=== PATIENT | female | born 1955 | race Hispanic/Latino ===

== ENCOUNTER → 2017-06-16 | Outpatient (CLI) | payer OTHER, MEDICARE ==
[~2017-06-16] MED LIST: ASPI-1012 PO; ASPI-1026 PO; ATOR20TA65 PO; DULO20CA17 PO; HYDR-2132 PO; HYDR-3965 PO; LOSA50TA37 PO; METF10004 PO; SERT25TA5 PO
== END | disposition home or self-care (01) ==
LOC: RAH 09:34
PROVIDERS: ATTEND Orthopaedic Surgery
DX: S83.241A Other tear of medial meniscus, current injury, right knee, initial encounter (principal); S83.281A Other tear of lateral meniscus, current injury, right knee, initial encounter; M25.461 Effusion, right knee; X58.XXXA Exposure to other specified factors, initial encounter; Y93.89 Activity, other specified; Y92.89 Other specified places as the place of occurrence of the external cause; Y99.8 Other external cause status
CPT/HCPCS: 73721

== ENCOUNTER → 2017-07-11 | Outpatient (CLI) | payer OTHER, MEDICARE | END | disposition home or self-care (01) | LOC: RAH 16:09 | PROVIDERS: ATTEND Internal Medicine | DX: R07.81 Pleurodynia (principal) | CPT/HCPCS: 71100 ==

== ENCOUNTER → 2018-06-19 | Outpatient (CLI) | payer OTHER, MEDICARE ==
[~2018-06-19] MED LIST changes: -LOSA50TA37 PO; +LOSA50TA64 PO; +METF-446 PO; -METF10004 PO
== END | disposition home or self-care (01) ==
LOC: RAH 09:23
PROVIDERS: ATTEND Internal Medicine
DX: R10.11 Right upper quadrant pain (principal); R10.12 Left upper quadrant pain
CPT/HCPCS: 76700

== ENCOUNTER → 2018-12-02 | Outpatient (CLI) | payer OTHER, MEDICARE ==
[~2018-12-02] MED LIST changes: -DULO20CA17 PO; +DULO20CA18 PO
== END | disposition home or self-care (01) ==
LOC: RAH 15:57
PROVIDERS: ATTEND Internal Medicine
DX: M25.512 Pain in left shoulder (principal)
CPT/HCPCS: 73030

== ENCOUNTER → 2019-04-13 | Outpatient (CLI) | payer MEDICARE, OTHER | END | disposition home or self-care (01) | LOC: RAH 14:34 | PROVIDERS: ATTEND Orthopaedic Surgery | DX: M75.102 Unspecified rotator cuff tear or rupture of left shoulder, not specified as traumatic (principal); M71.312 Other bursal cyst, left shoulder; M65.812 Other synovitis and tenosynovitis, left shoulder | CPT/HCPCS: 73221 ==

== ENCOUNTER → 2019-06-08 | Outpatient (CLI) | payer OTHER | END | disposition home or self-care (01) | LOC: RAH 12:11 | PROVIDERS: ATTEND Internal Medicine | DX: Z01.818 Encounter for other preprocedural examination (principal) | CPT/HCPCS: 71046 ==

== ENCOUNTER → 2020-01-19 | Outpatient (CLI) | payer OTHER, MEDICARE ==
[~2020-01-19] MED LIST changes: -ASPI-1012 PO; -ASPI-1026 PO; +CEPH-578 PO; -HYDR-2132 PO; -HYDR-3965 PO; +HYDR-4457 PO; -METF-446 PO; +NAPR-1192 PO; +insulin
== END | disposition home or self-care (01) ==
LOC: RAH 14:14
PROVIDERS: ATTEND Orthopaedic Surgery
DX: M23.91 Unspecified internal derangement of right knee (principal)
CPT/HCPCS: 73721

== ENCOUNTER 2020-02-09 10:55 | Emergency (ER) | payer OTHER, MEDICARE ==
[~2020-02-09] VITALS: Ht 152.4 cm; Wt 59.0 kg
[2020-02-09] MEDS ORDERED: KETOROLAC TROMETHAMINE 10 MG TABLET PO SCH (12:00)
== END 2020-02-09 13:23 | disposition home or self-care (01) ==
LOC: EDH 10:55
DX: S13.9XXA Sprain of joints and ligaments of unspecified parts of neck, initial encounter (principal); M54.12 Radiculopathy, cervical region; M62.830 Muscle spasm of back; W06.XXXA Fall from bed, initial encounter; Y93.89 Activity, other specified; Y92.89 Other specified places as the place of occurrence of the external cause; Y99.8 Other external cause status
CPT/HCPCS: 70450; 72125; 72128; 93005

== ENCOUNTER → 2020-06-23 | Outpatient (CLI) | payer OTHER, MEDICARE | END | disposition home or self-care (01) | LOC: RAH 10:08 | PROVIDERS: ATTEND Internal Medicine | DX: K59.00 Constipation, unspecified (principal); R14.0 Abdominal distension (gaseous) | CPT/HCPCS: 74018 ==

== ENCOUNTER → 2020-10-16 | Outpatient (CLI) | payer OTHER, MEDICARE ==
[~2020-10-16] MED LIST changes: +SERT-438 PO; -SERT25TA5 PO
== END | disposition home or self-care (01) ==
LOC: RAH 10:42
PROVIDERS: ATTEND Internal Medicine
DX: M54.5 Low back pain (principal); M25.551 Pain in right hip
CPT/HCPCS: 72100; 73502

== ENCOUNTER → 2021-07-30 | Outpatient (CLI) | payer OTHER, MEDICARE | END | disposition home or self-care (01) | LOC: RAH 10:16 | PROVIDERS: ATTEND Internal Medicine | DX: M47.26 Other spondylosis with radiculopathy, lumbar region (principal); M51.27 Other intervertebral disc displacement, lumbosacral region; M48.07 Spinal stenosis, lumbosacral region | CPT/HCPCS: 72148 ==

== ENCOUNTER → 2021-10-16 | Outpatient (CLI) | payer OTHER, MEDICARE ==
[~2021-10-16] MED LIST changes: +REGADENOSON 0.4 MG/5 ML PF SYG IVP SCH
== END | disposition home or self-care (01) ==
LOC: SHCH 08:36
PROVIDERS: ATTEND Internal Medicine Cardiovascular Disease
DX: R07.9 Chest pain, unspecified (principal); R00.2 Palpitations
CPT/HCPCS: 78452; 93017; 96374; A9500 ×2; J2785

== ENCOUNTER → 2021-11-01 | Outpatient (CLI) | payer OTHER, MEDICARE ==
[~2021-11-01] MED LIST changes: -REGADENOSON 0.4 MG/5 ML PF SYG IVP SCH
== END | disposition home or self-care (01) ==
LOC: RAH 09:26
PROVIDERS: ATTEND Internal Medicine
DX: R59.0 Localized enlarged lymph nodes (principal); R22.1 Localized swelling, mass and lump, neck; J02.9 Acute pharyngitis, unspecified
CPT/HCPCS: 76536

== ENCOUNTER → 2021-11-28 | Outpatient (CLI) | payer OTHER, MEDICARE | END | disposition home or self-care (01) | LOC: RAH 07:14 | PROVIDERS: ATTEND Internal Medicine Medical Oncology | DX: R59.1 Generalized enlarged lymph nodes (principal); E78.5 Hyperlipidemia, unspecified; E11.9 Type 2 diabetes mellitus without complications; Z80.42 Family history of malignant neoplasm of prostate; Z82.49 Family history of ischemic heart disease and other diseases of the circulatory system; Z83.3 Family history of diabetes mellitus; Z79.4 Long term (current) use of insulin; Z79.899 Other long term (current) drug therapy | CPT/HCPCS: 38505; 87070 ×2; 87076 ×2; 88305; 76942; C1887; A4215 ==

== ENCOUNTER → 2022-05-07 | Outpatient (CLI) | payer OTHER, MEDICARE | END | disposition home or self-care (01) | LOC: RAH 12:15 | PROVIDERS: ATTEND Internal Medicine | DX: R10.2 Pelvic and perineal pain (principal); Z90.710 Acquired absence of both cervix and uterus | CPT/HCPCS: 76856 ==

== ENCOUNTER → 2023-05-13 | Outpatient (CLI) | payer OTHER, MEDICARE | END | disposition home or self-care (01) | LOC: RAH 08:37 | PROVIDERS: ATTEND Internal Medicine | DX: K57.30 Diverticulosis of large intestine without perforation or abscess without bleeding (principal); K43.9 Ventral hernia without obstruction or gangrene; R19.00 Intra-abdominal and pelvic swelling, mass and lump, unspecified site | CPT/HCPCS: 74176 ==

== ENCOUNTER → 2023-11-13 | Outpatient (CLI) | payer OTHER, MEDICARE | END | disposition home or self-care (01) | LOC: RAH 14:37 | DX: M16.11 Unilateral primary osteoarthritis, right hip (principal); M19.071 Primary osteoarthritis, right ankle and foot; M25.551 Pain in right hip; M25.571 Pain in right ankle and joints of right foot; M25.572 Pain in left ankle and joints of left foot | CPT/HCPCS: 73502; 73610 ==

== ENCOUNTER 2024-01-15 08:00 | Emergency (ER) | payer OTHER, MEDICARE ==
[~2024-01-15] VITALS: Ht 152.4 cm; Wt 72.6 kg
[2024-01-15 09:36] LABS: BASOPHILS # (AUTO) 0.02 K/uL (0.00-0.20); BASOPHILS % (AUTO) 0.2 % (0.0-5.0); EOSINOPHILS # (AUTO) 0.07 K/uL (0.00-0.70); EOSINOPHILS % (AUTO) 0.8 % (0.0-8.0); HEMATOCRIT 39.8 % (36-48); IMMATURE GRANULOCYTE ABSOLUTE 0.03 K/uL (0-1); LYMPHOCYTES # (AUTO) 2.7 K/uL (1.0-4.8); LYMPHOCYTES % (AUTO) 30.4 % (21.0-51.0); MEAN CORPUSCULAR HEMOGLOBIN 30.5 pg (27.0-33.0); MEAN CORPUSCULAR HGB CONC 32.9 g/dL (32.0-36.0); MEAN CORPUSCULAR VOLUME 92.6 fL (79-99); MONOCYTES # (AUTO) 0.8 K/uL (0.1-1.0); MONOCYTES % (AUTO) 9.3 % (3.0-13.0); NEUTROPHILS # (AUTO) 5.2 K/uL (1.8-7.7); PLATELET COUNT (AUTO) 326 K/uL (130-400); RED CELL DISTRIBUTION WIDTH 13.6 % (11.0-15.5); WHITE BLOOD COUNT (AUTO) 8.8 K/uL (4.8-10.8)
[2024-01-15 09:46] LABS: CREATININE 1.1 mg/dL (0.5-1.0); POTASSIUM 3.5 mmol/L (3.5-5.1)
[2024-01-15] MEDS: KETOROLAC 15MG/ML VIAL (15MG/ML) IM ONE (10:05)
[2024-01-15 11:15] VITALS: BP 130/68; PULSE 67; RESP 15; O2SAT 99
== END 2024-01-15 11:39 | disposition home or self-care (01) ==
LOC: EDH 08:00
DX: S82.831A Other fracture of upper and lower end of right fibula, initial encounter for closed fracture (principal); M25.571 Pain in right ankle and joints of right foot; M25.572 Pain in left ankle and joints of left foot; M25.552 Pain in left hip; E66.9 Obesity, unspecified; E11.9 Type 2 diabetes mellitus without complications; M81.0 Age-related osteoporosis without current pathological fracture; F25.9 Schizoaffective disorder, unspecified; Z79.899 Other long term (current) drug therapy; Z79.2 Long term (current) use of antibiotics; Z68.30 Body mass index [BMI] 30.0-30.9, adult; Z98.890 Other specified postprocedural states; Z90.710 Acquired absence of both cervix and uterus; W10.8XXA Fall (on) (from) other stairs and steps, initial encounter; Y93.89 Activity, other specified; Y92.89 Other specified places as the place of occurrence of the external cause; Y99.8 Other external cause status
CPT/HCPCS: 99284; 29515; 80048; 85025; 36415; 73610; 73502; 96372; J1885

== ENCOUNTER 2024-05-22 17:44 | Emergency (ER) | payer OTHER, MEDICARE ==
[~2024-05-22] VITALS: Ht 152.4 cm; Wt 63.5 kg
--- NOTE | 2024-05-22 18:30 | ERN ---
ED Note History of Present Illness Stated Complaint: RECTAL BLEED Chief Complaint: Rectal Bleed Time Seen by MD: 18:30 Dictation: Says she has had some abdominal discomfort. But this comes and goes without any medications. pt comes in for rectal bleeding Allergies: Coded Allergies: No Known Drug Allergies (Unverified Allergy, Unknown, 12/06/16) Home Meds Active Scripts Naproxen (Naproxen) 375 Mg Tablet, 375 MG PO BID, #60 TAB Prov:JOSE MIGUEL ROACH MD 06/21/19 Hydrocodone/Acetaminophen ([place] 5-325 Tablet) 1 Each Tablet, 1-2 EACH PO Q6HPRN PRN for pain, #60 TAB Prov:JOSE MIGUEL ROACH MD 06/21/19 Cephalexin (Keflex) 500 Mg Capsule, 500 MG PO Q8H, #7 CAP Prov:JOSE MIGUEL ROACH MD 06/21/19 Reported Medications [insulin] No Conflict Check 06/18/19 Losartan Potassium (Losartan Potassium) 50 Mg Tablet, 50 MG PO AM, TAB 12/09/16 Duloxetine HCl (Duloxetine HCl) 20 Mg Capsule.dr, 20 MG PO BID, CAP 12/06/16 Atorvastatin Calcium (Atorvastatin Calcium) 20 Mg Tablet, 20 MG PO DAILY, TAB 12/06/16 Sertraline HCl (Sertraline HCl) 25 Mg Tablet, 25 MG PO DAILY, TAB 12/06/16 Past Medical History Past Medical History: Depression, Diabetes-Type II, Other Additional Past Medical Hx: OSTEOPOROSIS Surgical History: Hysterectomy, Other Surgical History Other: L SHOULDER, LEFT KNEE, UMBILICAL HERNIA REPAIR History: Not Applicable Review of System Dictation Constitutional: Negative for fever,chills, and weight loss Eyes: Negative for injury, pain,redness, and discharge ENT: Negative for injury,pain or swelling Cardiovascular: Negative for chest pain, palpitations, and edema Respiratory: Negative for shortness of breath, cough, and wheezing, Abdomen/GI: Rectal bleeding Back: Negative for injury and pain : Negative for injury, bleeding and discharge MS/Extremity: Negative for injury and deformity Skin: Negative for rash, and discoloration Neuro: Negative for headache, weakness, numbness, tingling, and seizure Psych: Negative for suicide ideation, homicidal ideation, and hallucinations Initial Vital Sign VS Vital Signs Date Time Temp Pulse Resp B/P (MAP) Pulse Ox O2 Delivery O2 Flow Rate FiO2 12/21/24 17:48 98.2 99 18 143/87 98 Physical Exam Dictation General: awake, alert, NAD Head/Face: Normocephalic, atraumatic Eyes: PERRL, EOMI, vision at baseline ENT: oral cavity clear, TMs clear, no signs of infection Neck: Trachea midline, supple, no nuchal rigidity Cardiovascular: RRR, normal S1/S2, No MRGs, no JVD Respiratory: CTAB, no respiratory distress, No rales or wheezes Abdomen: Soft, non-tender, non-distended, normal bowel sounds, no guarding or rebound. Patient is not have any abdominal wincing grimacing Skin: Warm, dry, normal turgor, no rash MS/Extremity: Pulses equal, no cyanosis, neurovascular intact, FROM Neuro: COAx4, GCS 15, strength 5/5, CN 2-12 intact, normal cerebellar exam, normal gait, Psych: Normal behavior, mood, and affect normal Results (Laboratory/Radiology) Laboratory/Radiology Laboratory Tests Test 05/22/24 20:05 05/22/24 20:46 Urine Color COLORLESS (YELLOW) Urine Appearance CLEAR (CLEAR) Urine pH 5.5 (5.0-8.0) Urine Specific [place] 1.022 (1.001-1.031) Urine Protein NEGATIVE mg/dL (NEGATIVE) Urine Glucose (UA) >=1000 mg/dL (NEGATIVE) H Urine Ketones 40 mg/dL (NEGATIVE) H Urine Occult Blood NEGATIVE (NEGATIVE) Urine Nitrate NEGATIVE (NEGATIVE) Urine Bilirubin NEGATIVE mg/dL (NEGATIVE) Urine Urobilinogen 0.2 mg/dL (0.2-1.0) Urine Leukocyte Esterase NEGATIVE [place]/uL Urine RBC 0-1 /HPF (0-1) Urine WBC 0-1 /HPF (0-1) Urine Squamous Epithelial Cells RARE /HPF (0-2) Urine Bacteria None /HPF (None Seen) White Blood Count 8.1 K/uL (4.8-10.8) Red Blood Count 3.89 MIL/uL (4.00-5.50) L Hemoglobin 12.0 g/dL (12.0-16.0) Hematocrit 35.9 % (36-48) L Mean Corpuscular Volume 92.3 fL (79-99) Mean Corpuscular Hemoglobin 30.8 pg (27.0-33.0) Mean Corpuscular Hemoglobin Concent 33.4 g/dL (32.0-36.0) Red Cell Distribution Width 12.6 % (11.0-15.5) Platelet Count 291 K/uL (130-400) Mean Platelet Volume 10.0 fL (7.5-10.5) Immature Granulocyte % (Auto) 0.5 % (0-1) Neutrophils (%) (Auto) 55.0 % (40.0-77.0) Lymphocytes (%) (Auto) 34.8 % (21.0-51.0) Monocytes (%) (Auto) 7.9 % (3.0-13.0) Eosinophils (%) (Auto) 1.4 % (0.0-8.0) Basophils (%) (Auto) 0.4 % (0.0-5.0) Neutrophils # (Auto) 4.5 K/uL (1.8-7.7) Lymphocytes # (Auto) 2.8 K/uL (1.0-4.8) Monocytes # (Auto) 0.6 K/uL (0.1-1.0) Eosinophils # (Auto) 0.11 K/uL (0.00-0.70) Basophils # (Auto) 0.03 K/uL (0.00-0.20) Absolute Immature Granulocyte (auto 0.04 K/uL (0-1) Nucleated Red Blood Cells 0.0 % (0.0-0.19) Sodium Level 133 mmol/L (136-145) L Potassium Level 3.9 mmol/L (3.5-5.1) Chloride Level 97 mmol/L (101-111) L Carbon Dioxide Level 28 mmol/L (21-32) Blood Urea Nitrogen 20 mg/dL (7-18) H Creatinine 1.0 mg/dL (0.5-1.0) Glomerular Filtration Rate Calc 61 mL/min (>90) Random Glucose 363 mg/dL (70-105) H Total Calcium 8.6 mg/dL (8.5-10.1) Total Bilirubin 0.4 mg/dL (0.2-1.0) Aspartate Amino Transf (AST/SGOT) 20 U/L (10-37) Alanine Aminotransferase (ALT/SGPT) 30 U/L (12-78) Alkaline Phosphatase 119 U/L (50-136) Troponin I High Sensitivity 10 ng/L (4-50) Total Protein 7.1 g/dL (6.0-8.3) Albumin 3.1 g/dL (3.5-5.0) L ED Course ED Course Orders Procedure Category Date Status Time Cbc With Differential LAB 05/22/24 Complete 18:51 Comprehensive LAB 05/22/24 Complete Metabolic Panel 18:51 Troponin I High LAB 05/22/24 Complete Sensitivity 18:51 Urinalysis Profile LAB 05/22/24 Complete 18:51 12 Lead Ekg Tracing- EKG 05/22/24 Complete Technical 18:51 Ct Abdomen/Pelvis W/O CT 05/22/24 Resulted Contrast 18:51 Chest 1vw RAD 05/22/24 Resulted 18:51 Vital Signs Date Time Temp Pulse Resp B/P (MAP) Pulse Ox O2 Delivery O2 Flow Rate FiO2 05/22/24 17:48 98.2 99 18 143/87 98 Medical Decision Making MDM I told him labs test imaging were all within normal limits. She had deferred a rectal examination. I said best case scenario would be it would be external internal rectal hemorrhoid. She said she had had this in the past and went away without issues. I said to be on the safe side we come into the hospital. And have GI do endoscopy and colonoscopy. And had to monitor hemoglobins. They said that if she feels that labs and tests imaging are negative. She preferred to go home and follow up with PCP in the outpatient setting. I said this is okay that is understandable. I told her if she does start to have any anymore abdominal pain or bleeding to return immediately to the no other questions complaints concerns at this time. All respect to the OR told me she has a may capacity. DX & DISP Disposition: Discharge Departure Impression: Primary Impression: Rectal bleeding Condition: Stable Scripts Famotidine (Famotidine) 20 Mg Tablet 1 TAB PO BID for 30 Days, #60 TAB 0 Refills Prov: SILVANA FULLER MD 05/22/24 Pantoprazole Sodium (Protonix) 20 Mg Tablet. 1 TAB PO DAILY for 30 Days, #30 TAB 0 Refills Prov: SILVANA FULLER MD 05/22/24 Referrals: BETTE MARTINEZ MD (PCP) SILVANA FULLER MD May 22, 2024 18:30
--- NOTE | 2024-05-22 19:34 | HMCIMG ---
CHEST 1VW REASON: cp COMPARISON: 06/08/2019 FINDINGS: Single view of the chest was obtained. Lungs are clear. Heart size is normal. There is no pulmonary vascular congestion. Mediastinum and bony thorax appear unremarkable. IMPRESSION: 1. Normal single view chest x-ray.
--- NOTE | 2024-05-22 19:55 | EKG ---
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
--- NOTE | 2024-05-22 19:55 | HMCIMG ---
CT ABDOMEN/PELVIS W/O CONTRAST REASON: ABD PAIN COMPARISON: 05/13/2023 FINDINGS: Lung bases are clear. There are no focal liver lesions. There are normal-appearing kidneys.. Spleen and pancreas appear unremarkable. The gallbladder appears normal as well. There is moderate to sigmoid diverticulosis without evidence of diverticulitis. Bowel loops appear otherwise unremarkable. There is no CT evidence of acute appendicitis. There is no evidence of free fluid or intraperitoneal air. There are no focal fluid collections. Aorta and retroperitoneum appear normal as do pelvic soft tissue structures. The anterior abdominal wall is intact. Osseous structures appear unremarkable. IMPRESSION: 1. Moderate sigmoid diverticulosis without evidence of diverticulitis. 2. Otherwise unremarkable noncontrast CT abdomen and pelvis. CT was performed with one or more following dose reduction techniques: automated exposure control, adjustment of the mA and kv according to patient's size, or use of a iterative reconstruction technique.
[2024-05-22 20:17] LABS: ADD UA MICROSCOPIC YES; APPEARANCE,URINE CLEAR (CLEAR); BILIRUBIN,URINE NEGATIVE (NEGATIVE); COLOR,URINE COLORLESS (YELLOW); GLUCOSE, URINE (UA) >=1000 mg/dL (NEGATIVE); KETONES,URINE 40 mg/dL (NEGATIVE); LEUKOCYTE ESTERASE ,URINE NEGATIVE Leu/uL (NEGATIVE); NITRATE,URINE NEGATIVE (NEGATIVE); OCCULT BLOOD,URINE NEGATIVE (NEGATIVE); PH,URINE 5.5 (5.0-8.0); PROTEIN,URINE NEGATIVE (NEGATIVE); UROBILINOGEN,URINE 0.2 mg/dL (0.2-1.0)
[2024-05-22 20:18] LABS: RBC,URINE 0-1 /HPF (0-1); SQUAMOUS EPITHELIAL CELL,UR RARE /HPF (0-2); WBC,URINE 0-1 /HPF (0-1)
[2024-05-22 20:56] LABS: BASOPHILS # (AUTO) 0.03 K/uL (0.00-0.20); BASOPHILS % (AUTO) 0.4 % (0.0-5.0); EOSINOPHILS # (AUTO) 0.11 K/uL (0.00-0.70); EOSINOPHILS % (AUTO) 1.4 % (0.0-8.0); HEMATOCRIT 35.9 % (36-48); IMMATURE GRANULOCYTE ABSOLUTE 0.04 K/uL (0-1); LYMPHOCYTES # (AUTO) 2.8 K/uL (1.0-4.8); LYMPHOCYTES % (AUTO) 34.8 % (21.0-51.0); MEAN CORPUSCULAR HEMOGLOBIN 30.8 pg (27.0-33.0); MEAN CORPUSCULAR HGB CONC 33.4 g/dL (32.0-36.0); MEAN CORPUSCULAR VOLUME 92.3 fL (79-99); MONOCYTES # (AUTO) 0.6 K/uL (0.1-1.0); MONOCYTES % (AUTO) 7.9 % (3.0-13.0); NEUTROPHILS # (AUTO) 4.5 K/uL (1.8-7.7); PLATELET COUNT (AUTO) 291 K/uL (130-400); RED BLOOD CELL COUNT(AUTO) 3.89 MIL/uL (4.00-5.50); RED CELL DISTRIBUTION WIDTH 12.6 % (11.0-15.5); WHITE BLOOD COUNT (AUTO) 8.1 K/uL (4.8-10.8)
[2024-05-22 21:05] LABS: POTASSIUM 3.9 mmol/L (3.5-5.1)
[2024-05-22 21:20] LABS: ALBUMIN 3.1 g/dL (3.5-5.0); BILIRUBIN,TOTAL 0.4 mg/dL (0.2-1.0); TOTAL PROTEIN, SERUM 7.1 g/dL (6.0-8.3)
[2024-05-22] MEDS ORDERED: FAMO20TA8 PO (22:03)
[2024-05-22] MEDS ORDERED: PANT20TA PO (22:03)
[2024-05-22 22:10] VITALS: BP 142/86; PULSE 87; RESP 16; TEMP 97.8; O2SAT 98
== END 2024-05-22 22:17 | disposition home or self-care (01) ==
LOC: EDH 17:44
DX: K62.5 Hemorrhage of anus and rectum (principal); E11.9 Type 2 diabetes mellitus without complications; F32.A Depression, unspecified; Z79.899 Other long term (current) drug therapy; Z90.710 Acquired absence of both cervix and uterus; Z98.890 Other specified postprocedural states
CPT/HCPCS: 36415; 71045; 74176; 80053; 81001; 84484; 85025; 93005; 99285

== ENCOUNTER → 2024-08-05 | Outpatient (CLI) | payer OTHER, MEDICARE ==
[~2024-08-05] MED LIST changes: +FAMO20TA8 PO; +PANT20TA PO
--- NOTE | 2024-08-05 16:29 | HMCIMG ---
ABD 1VW HISTORY: Chronic constipation COMPARISON: None FINDINGS: A frontal projection of the abdomen was obtained. A nonspecific bowel gas pattern is seen. Fecal material is seen in the colon. Degenerative changes of the thoracolumbar spine are noted. Findings are suggestive of constipation. IMPRESSION: 1. A nonspecific bowel gas pattern is seen.
== END | disposition home or self-care (01) ==
LOC: RAH 11:09
PROVIDERS: ATTEND Nurse Practitioner Family
DX: K59.00 Constipation, unspecified (principal); M47.815 Spondylosis without myelopathy or radiculopathy, thoracolumbar region
CPT/HCPCS: 74018

== ENCOUNTER → 2024-08-24 | Outpatient (CLI) | payer OTHER, MEDICARE ==
--- NOTE | 2024-08-24 13:15 | HMCIMG ---
HIP UNILAT 2-3VW LEFT HISTORY: Status post fall COMPARISON: 11/13/2023 TECHNIQUE: 2 images of pelvis and left hip were obtained. FINDINGS: There is no acute displaced fracture or dislocation. Degenerative changes are seen. IMPRESSION: 1. Findings as described above.
== END | disposition home or self-care (01) ==
LOC: RAH 11:26
PROVIDERS: ATTEND Nurse Practitioner Family
DX: M16.12 Unilateral primary osteoarthritis, left hip (principal); M25.552 Pain in left hip
CPT/HCPCS: 73502

== ENCOUNTER → 2024-08-30 | Outpatient (CLI) | payer OTHER, MEDICARE ==
--- NOTE | 2024-08-30 17:14 | HMCIMG ---
US CAROTID DUPLEX HISTORY: Syncope COMPARISON: None TECHNIQUE: Duplex carotid arterial Doppler ultrasound study was performed. FINDINGS: The common, internal and external carotid arteries are visualized. The peak systolic velocities of right common carotid artery is 72 centimeters per second, right internal carotid artery is 84 centimeters per second, right external carotid artery is 166 centimeters per second, and right vertebral artery is 51 centimeters per second. Right internal carotid artery to right common carotid artery ratio is 1.2. Right vertebral artery is seen with antegrade flow. High resistance flow is seen of the right vertebral artery. The peak systolic velocities of left common carotid artery is 96 centimeters per second, left internal carotid artery is 125 centimeters per second, left external carotid artery is 130 centimeters per second, and left vertebral artery is 60 centimeters per second. Left internal carotid artery to left common carotid artery ratio is 1.3. Left vertebral artery is seen with antegrade flow. IMPRESSION: 1. No hemodynamically significant lesion is seen of either extracranial carotid artery system.
--- NOTE | 2024-08-30 17:24 | HMCIMG ---
CT HEAD/BRAIN W/O CONTRAST HISTORY: Near syncope COMPARISON: None TECHNIQUE: Multiple sequential axial images of the head were obtained from the base of the skull through vertex. Patient was not given contrast through intravenous route. FINDINGS: The ventricles and extraventricular CSF spaces are nondilated for patient's age. There is no midline shift, mass effect or herniation. No acute intracranial bleed is seen. Visualized portion of the paranasal sinuses are grossly within normal limits. IMPRESSION: 1. No acute intracranial bleed is seen. CT was performed with one or more following dose reduction techniques: automated exposure control, adjustment of the mA and kv according to patient's size, or use of a iterative reconstruction technique.
== END | disposition home or self-care (01) ==
LOC: RAH 14:26
DX: R55 Syncope and collapse (principal); R07.9 Chest pain, unspecified; R00.2 Palpitations; R29.6 Repeated falls
CPT/HCPCS: 70450; 93880

== ENCOUNTER → 2024-08-31 | Outpatient (CLI) | payer OTHER, MEDICARE ==
--- NOTE | 2024-08-31 16:51 | HMCIMG ---
CHEST 2VWS HISTORY: Dyspnea COMPARISON: 05/22/2024 FINDINGS: Frontal and lateral projections of the chest were obtained. There is no acute pulmonary infiltrates or failure. The heart is not enlarged. No evidence of aortic calcification is seen. Prominent interstitial markings are seen. Mild degenerative changes are seen. IMPRESSION: 1. No acute pulmonary infiltrates.
== END | disposition home or self-care (01) ==
LOC: RAH 14:22
PROVIDERS: ATTEND Family Medicine
DX: J84.89 Other specified interstitial pulmonary diseases (principal); R06.09 Other forms of dyspnea; M47.814 Spondylosis without myelopathy or radiculopathy, thoracic region
CPT/HCPCS: 71046

== ENCOUNTER 2024-11-11 09:57 | Emergency (ER) | payer OTHER, MEDICAID ==
[~2024-11-11] VITALS: Ht 152.4 cm; Wt 68.0 kg
--- NOTE | 2024-11-11 10:08 | EKG ---
[facility] Test Date: 2024-11-11 Test Time: 10:05:21 Pat Name: RYNE PARKER Department: ED Room: Gender: F Security Management Specialist: [id number] : 1955 Requested By: CAITLYN SUBRAMANIAN Order Number: [id number] Reading MD: Anibal Unger Measurements Intervals [place] Rate: 87 P: 39 IN: 133 QRS: 26 QRSD: 85 T: 55 QT: 363 QTc: 436 Interpretive Statements Sinus rhythm Compared to ECG 05/22/2024 19:53:34 No significant changes Electronically Signed On 11-12-2024 17:16:12 CDT by Anibal Unger Please click the below link to view image of tracing.
--- NOTE | 2024-11-11 10:41 | ERN ---
ED Note History of Present Illness Stated Complaint: DIZZINESS Chief Complaint: Dizzy/Light Headed Time Seen by MD: 10:20 Time Seen by Midlevel: 10:22 Dictation: 69-year-old female coming in from PCP for elevated blood sugar. Patient states she feels dizzy and has had diarrhea for the last three days. Went to see her PCP they checked her blood sugar and it was in the 450. They gave her 10 units of regular insulin subQ and was sent here for follow up. Patient takes Humalog and Fraxiga at home for her diabetes control. Allergies: Coded Allergies: No Known Drug Allergies (Unverified Allergy, Unknown, 12/06/16) Home Meds Active Scripts Famotidine (Famotidine) 20 Mg Tablet, 1 TAB PO BID for 30 Days, #60 TAB 0 Refills Prov:SILVANA FULLER MD 05/22/24 Pantoprazole Sodium (Protonix) 20 Mg Tablet.dr, 1 TAB PO DAILY for 30 Days, #30 TAB 0 Refills Prov:SILVANA FULLER MD 05/22/24 Naproxen (Naproxen) 375 Mg Tablet, 375 MG PO BID, #60 TAB Prov:JOSE MIGUEL ROACH MD 06/21/19 Hydrocodone/Acetaminophen ([place] 5-325 Tablet) 1 Each Tablet, 1-2 EACH PO Q6HPRN PRN for pain, #60 TAB Prov:JOSE MIGUEL ROACH MD 06/21/19 Cephalexin (Keflex) 500 Mg Capsule, 500 MG PO Q8H, #7 CAP Prov:JOSE MIGUEL ROACH MD 06/21/19 Reported Medications [insulin] No Conflict Check 06/18/19 Losartan Potassium (Losartan Potassium) 50 Mg Tablet, 50 MG PO AM, TAB 12/09/16 Duloxetine HCl (Duloxetine HCl) 20 Mg Capsule.dr, 20 MG PO BID, CAP 12/06/16 Atorvastatin Calcium (Atorvastatin Calcium) 20 Mg Tablet, 20 MG PO DAILY, TAB 12/06/16 Sertraline HCl (Sertraline HCl) 25 Mg Tablet, 25 MG PO DAILY, TAB 12/06/16 Past Medical History Past Medical History: Diabetes-Type II Additional Past Medical Hx: OSTEOPOROSIS Surgical History: Appendectomy, Hysterectomy, Other Surgical History Other: LEFT KNEE, LEFT SHOULDER History: Not Applicable Review of System Dictation Constitutional: Negative for fever,chills, and weight loss Eyes: Negative for injury, pain,redness, and discharge ENT: Negative for injury,pain or swelling Cardiovascular: Negative for chest pain, palpitations, and edema Respiratory: Negative for shortness of breath, cough, and wheezing, Abdomen/GI: Negative for abdominal pain, nausea, vomiting, complaining of diarrhea for three days, nonbloody Back: Negative for injury and pain : Negative for injury, bleeding and discharge MS/Extremity: Negative for injury and deformity Skin: Negative for rash, and discoloration Neuro: Negative for headache, weakness, numbness, tingling, and seizure , complaining of dizziness Psych: Negative for suicide ideation, homicidal ideation, and hallucinations Review of Systems: was completed Initial Vital Sign VS Vital Signs Date Time Temp Pulse Resp B/P (MAP) Pulse Ox O2 Delivery O2 Flow Rate FiO2 11/11/24 09:57 98.1 94 20 158/80 99 Room Air 0 Physical Exam Dictation General: awake, alert, NAD Head/Face: Normocephalic, atraumatic Eyes: PERRL, EOMI, vision at baseline ENT: oral cavity clear, TMs clear, no signs of infection Neck: Trachea midline, supple, no nuchal rigidity Cardiovascular: RRR, normal S1/S2, No MRGs, no JVD Respiratory: CTAB, no respiratory distress, No rales or wheezes Abdomen: Soft, non-tender, non-distended, normal bowel sounds, no guarding or rebound. Skin: Warm, dry, normal turgor, no rash MS/Extremity: Pulses equal, no cyanosis, neurovascular intact, FROM Neuro: COAx4, GCS 15, strength 5/5, CN 2-12 intact, normal cerebellar exam, normal gait, Psych: Normal behavior, mood, and affect normal Results (Laboratory/Radiology) Laboratory/Radiology Laboratory Tests Test 11/11/24 10:32 White Blood Count 7.8 K/uL (4.8-10.8) Red Blood Count 4.45 MIL/uL (4.00-5.50) Hemoglobin 13.0 g/dL (12.0-16.0) Hematocrit 39.2 % (36-48) Mean Corpuscular Volume 88.1 fL (79-99) Mean Corpuscular Hemoglobin 29.2 pg (27.0-33.0) Mean Corpuscular Hemoglobin Concent 33.2 g/dL (32.0-36.0) Red Cell Distribution Width 15.2 % (11.0-15.5) Platelet Count 353 K/uL (130-400) Mean Platelet Volume 9.7 fL (7.5-10.5) Immature Granulocyte % (Auto) 0.4 % (0-1) Neutrophils (%) (Auto) 63.5 % (40.0-77.0) Lymphocytes (%) (Auto) 26.9 % (21.0-51.0) Monocytes (%) (Auto) 7.9 % (3.0-13.0) Eosinophils (%) (Auto) 0.8 % (0.0-8.0) Basophils (%) (Auto) 0.5 % (0.0-5.0) Neutrophils # (Auto) 4.9 K/uL (1.8-7.7) Lymphocytes # (Auto) 2.1 K/uL (1.0-4.8) Monocytes # (Auto) 0.6 K/uL (0.1-1.0) Eosinophils # (Auto) 0.06 K/uL (0.00-0.70) Basophils # (Auto) 0.04 K/uL (0.00-0.20) Absolute Immature Granulocyte (auto 0.03 K/uL (0-1) Nucleated Red Blood Cells 0.0 % (0.0-0.19) Sodium Level 135 mmol/L (136-145) L Potassium Level 4.0 mmol/L (3.5-5.1) Chloride Level 101 mmol/L (101-111) Carbon Dioxide Level 28 mmol/L (21-32) Blood Urea Nitrogen 19 mg/dL (7-18) H Creatinine 0.9 mg/dL (0.5-1.0) Glomerular Filtration Rate Calc 70 mL/min (>90) Random Glucose 327 mg/dL (70-105) H Total Calcium 9.4 mg/dL (8.5-10.1) Total Creatine Kinase 43 U/L (21-232) Troponin I High Sensitivity 7 ng/L (4-50) B-Type Natriuretic Peptide 11 pg/mL (0-100) Labs Reviewed?: Yes EKG Comment: EKGs did not attend 0 five, sinus rhythm at a rate of 87. No STEMI interpreted by ER MD ED Course ED Course Orders Procedure Category Date Status Time Vital Signs Per CPOE 11/11/24 Transmitted Routine 10:01 B-Type Natriuretic LAB 11/11/24 Complete Peptide 10:01 Chest 1vw RAD 11/11/24 Resulted 10:01 12 Lead Ekg Tracing- EKG 11/11/24 Complete Technical 10:01 Oxygen By Nc/Pulse Ox CPOE 11/11/24 Transmitted 10:01 Maintain Iv CPOE 11/11/24 Transmitted 10:01 Iv Insertion CPOE 11/11/24 Transmitted 10:01 Cardiac Monitoring CPOE 11/11/24 Transmitted 10:01 Pulse Oximetry With CPOE 11/11/24 Transmitted Vs And Prn 10:01 Cbc With Differential LAB 11/11/24 Complete 10:01 Activity: Br W/Brp CPOE 11/11/24 Transmitted With Assist 10:01 Creatine Kinase, Total LAB 11/11/24 Complete 10:01 Troponin I High LAB 11/11/24 Complete Sensitivity 10:01 Urinalysis Profile LAB 11/11/24 Logged 10:01 Basic Metabolic Panel LAB 11/11/24 Complete 10:01 0.9%Nacl 1000ml (Ns PHA 11/11/24 Complete 1000ml) 10:34 Ondansetron 4mg Inj PHA 11/11/24 Complete (Zofran 4mg Inj) 10:34 Famotidine 20mg Vial PHA 11/11/24 Complete (Pepcid 20mg Vial) 10:34 Bedside Glucose CPOE 11/11/24 Transmitted Fingerstick 13:12 Current Medications Medications (Trade) Dose Ordered Sig/Dangelo Route PRN Reason Start Time Stop Time Status Last Admin Dose Admin Famotidine (Pepcid 20mg Vial) 20 mg ONCE STAT IV 11/11/24 10:34 11/11/24 10:37 DC 11/11/24 13:19 Ondansetron HCl (zoFRAN 4MG INJ) 4 mg ONCE STAT IVP 11/11/24 10:34 11/11/24 10:37 DC 11/11/24 13:19 Sodium Chloride 1,000 ml @ 1,000 mls/hr Q1H STAT IV 11/11/24 10:34 11/11/24 11:33 DC 11/11/24 13:19 Vital Signs Date Time Temp Pulse Resp B/P (MAP) Pulse Ox O2 Delivery O2 Flow Rate FiO2 11/11/24 09:57 98.1 94 20 158/80 99 Room Air 0 Medical Decision Making MDM MDM: 69-year-old female coming in from PCP for elevated blood sugar. Patient states she feels dizzy and has had diarrhea for the last three days. Went to see her PCP they checked her blood sugar and it was in the 450. They gave her 10 units of regular insulin subQ and was sent here for follow up. Patient takes Humalog and Fraxiga at home for her diabetes control. CBC shows no leukocytosis, no anemia, no thrombocytopenia. Chemistry shows a carbon dioxide to room of 28, normal kidney function. Blood sugar is 327. Troponin is n egative. Patient received a 1 L of fluids in the emergency room and blood sugar has a improved. Discussed findings with the patient. Educated patient needs to follow up with PCP to readjust her medications and keep hydrated. Delay in disposition due to patient being in the lobby for prolonged period of time before getting medications. Differential diagnosis: DKA, hyperglycemia, HHS, dehydration Rationale: Tests considered and ordered secondary to shared decision making include: Previous outside records reviewed: Old ER visits. Risk of complication and/or morbidity or mortality of patient management: None Medications-Per medication reconciliation Need for hospitalization: Patient does not meet criteria for hospitalization. Need for emergency major/minor surgery: No There are no social concerns with this patient. Prescription drug management Prescriptions will include symptomatic care Patient's prior external medical records from other ER visits were reviewed by me as indicated. Prior testing and results from previous visits were reviewed. Prior tests were taken into account with medical decision making and resource utilization, independent historian/historians were used to obtain complete medical history. I independently interpreted the test that were performed, results were reviewed by me and considered findings on radiology if ordered. Medical management and examination interpretation discussions were had by me with other qualified healthcare professionals as indicated for the patient's care. DX & DISP Disposition: Discharge Departure Impression: Primary Impression: Hyperglycemia Condition: Stable Additional Instructions: Seguir con sierra doctor familiar en 1-2 johnson. Mantenerse hidratada. Referrals: BETTE MARTINEZ MD (PCP) Time of Disposition: 13:41 I have reviewed the case, and I agree with, Diagnosis and Plan GRISELDA JIANG NP Nov 11, 2024 10:41
[2024-11-11 10:44] LABS: BASOPHILS # (AUTO) 0.04 K/uL (0.00-0.20); BASOPHILS % (AUTO) 0.5 % (0.0-5.0); EOSINOPHILS # (AUTO) 0.06 K/uL (0.00-0.70); EOSINOPHILS % (AUTO) 0.8 % (0.0-8.0); HEMATOCRIT 39.2 % (36-48); IMMATURE GRANULOCYTE ABSOLUTE 0.03 K/uL (0-1); LYMPHOCYTES # (AUTO) 2.1 K/uL (1.0-4.8); LYMPHOCYTES % (AUTO) 26.9 % (21.0-51.0); MEAN CORPUSCULAR HEMOGLOBIN 29.2 pg (27.0-33.0); MEAN CORPUSCULAR HGB CONC 33.2 g/dL (32.0-36.0); MEAN CORPUSCULAR VOLUME 88.1 fL (79-99); MONOCYTES # (AUTO) 0.6 K/uL (0.1-1.0); MONOCYTES % (AUTO) 7.9 % (3.0-13.0); NEUTROPHILS # (AUTO) 4.9 K/uL (1.8-7.7); NEUTROPHILS % (AUTO) 63.5 % (40.0-77.0); PLATELET COUNT (AUTO) 353 K/uL (130-400); RED BLOOD CELL COUNT(AUTO) 4.45 MIL/uL (4.00-5.50); RED CELL DISTRIBUTION WIDTH 15.2 % (11.0-15.5); WHITE BLOOD COUNT (AUTO) 7.8 K/uL (4.8-10.8)
[2024-11-11 10:59] LABS: CREATININE 0.9 mg/dL (0.5-1.0)
--- NOTE | 2024-11-11 11:07 | HMCIMG ---
Exam Type: CHEST 1VW Clinical Information: CHEST PAIN Comparison: None Findings: The lungs are clear of infiltrates. The heart is normal in size. The bony and soft tissue structures of the chest are unremarkable. Impression: Clear lungs.
[2024-11-11 11:08] LABS: B-TYPE NATRIURETIC PEPTIDE 11 pg/mL (0-100)
--- NOTE | 2024-11-11 13:16 | NUR ---
pt moved from lobby into fast track at this time assumed care at this time
[2024-11-11] MEDS: FAMOTIDINE 20MG VIAL IV STA (13:19)
[2024-11-11] MEDS: 0.9%NACL 1000ML 1,000 ML IV STA (13:19)
[2024-11-11] MEDS: ondanSETRON 4MG INJ IVP STA (13:19)
[2024-11-11 14:08] VITALS: BP 140/79; PULSE 82; RESP 18; TEMP 98.1; O2SAT 99
== END 2024-11-11 14:18 | disposition home or self-care (01) ==
LOC: EDH 09:57
DX: E11.65 Type 2 diabetes mellitus with hyperglycemia (principal); Z79.899 Other long term (current) drug therapy; Z90.49 Acquired absence of other specified parts of digestive tract; Z90.710 Acquired absence of both cervix and uterus
CPT/HCPCS: 99285; 96374; 71045; 96361; 96375; 82550; 84484; 80048; 83880; 85025; 82948; 36415; 93005; J3490; J7030; J2405

== ENCOUNTER → 2024-12-29 | Outpatient (CLI) | payer OTHER, MEDICAID ==
--- NOTE | 2024-12-30 05:45 | HMCIMG ---
DX Left Ankle, 3 views. CLINICAL HISTORY: Left ankle pain. COMPARISON: Radiograph of the bilateral ankles dated 01/15/2024. FINDINGS: No acute fracture or aggressive appearing osseous lesion. Mild osteopenia. Joint spaces are within normal limits. No radiographic evidence of joint effusion. The soft tissues are unremarkable. IMPRESSION: No acute bony abnormality is evident. Mild osteopenia. No gross interval changes. /[place]
== END | disposition home or self-care (01) ==
LOC: RAH 10:52
PROVIDERS: ATTEND Nurse Practitioner Family
DX: M85.872 Other specified disorders of bone density and structure, left ankle and foot (principal); M25.572 Pain in left ankle and joints of left foot
CPT/HCPCS: 73610

== ENCOUNTER → 2025-02-08 | Outpatient (CLI) | payer OTHER, MEDICAID ==
--- NOTE | 2025-02-12 10:07 | HMCIMG ---
CLINICAL INDICATION: Age-related osteoporosis without current pathological fracture COMPARISON: None available TECHNIQUE: Bone densitometry is performed of the lumbar spine and left hip. FINDINGS: Total BMD of lumbar spine is 0.810 g/cm2 with a T-score of -2.2 and Z-score is 0.1. Total BMD of left hip is 0.861 g/cm2 with a T-score of -0.8 and Z-score is 0.6. FRAX SCORE: The 10 year fracture risk for a major osteoporotic fracture and hip fracture not reported due to treated for osteoporosis IMPRESSION: 1. Osteopenia of lumbar spine 2. Normal left hip 3. Would recommend follow-up in 13 months. World Health Organization criteria for BMD interpretation classify patients as Normal (T-score at or above -1.0), Osteopenic (T-score between -1.0 and -2.5), or Osteoporotic (T-score at or below -2.5). FRAX SCORE: A. All treatment decisions require clinical judgment and consideration of individual patient factors, including patient preferences, comorbidities, previous drug use, risk factors not captured in the FRAX model (e.g., frailty, falls, vitamin D deficiency, increased bone turnover, interval significant decline in bone density) and possible [id number]-estimation of fracture risk by FRAX. B. In addition, the NOF Guide recommends that FDA-approved medical therapies be considered in postmenopausal women and men age greater than or equal to 50 years with a: i. Hip or vertebral (clinical or morphometric) fracture. ii. T-score of less than or equal to -2.5 at the spine or hip. iii. Ten-year fracture probability by FRAX of greater than or equal to 3% for hip fracture of greater than or equal to 20% for major osteoporotic fracture.
== END | disposition home or self-care (01) ==
LOC: RAH 13:44
PROVIDERS: ATTEND Internal Medicine
DX: M85.88 Other specified disorders of bone density and structure, other site (principal); M81.0 Age-related osteoporosis without current pathological fracture
CPT/HCPCS: 77080

== ENCOUNTER → 2025-03-28 | Outpatient (CLI) | payer OTHER, MEDICAID ==
--- NOTE | 2025-03-28 15:16 | HMCIMG ---
US ABDOMEN COMPLETE Clinical Details: Patient presents with epigastric pain. Technique: Real-time ultrasound of the abdomen (complete) was performed with image documentation. Findings: Liver: The liver measures 14 cm in size with normal echogenicity and smooth contours. No focal hepatic lesions or biliary dilatation are identified. Gallbladder: The gallbladder wall thickness measures 1 mm and appears normal. No gallstones, wall thickening, or pericholecystic fluid are noted. Common Bile Duct: The common bile duct measures 5 mm in diameter, which is within normal limits. No biliary dilatation is observed. Pancreas: The pancreas is normal where visualized. The tail of the pancreas is partly obscured by overlying bowel gas, limiting complete evaluation. Right Kidney: Measures 8 ??? 3.8 ??? 4.9 cm with normal echotexture. No hydronephrosis or calculus are detected. Left Kidney: Measures 8 ??? 5.6 ??? 4.2 cm with normal echotexture. No hydronephrosis or calculus are detected. Spleen: Measures 8.2 cm and appears normal in size and echogenicity. No splenic masses are identified. IVC / Aorta: Both the inferior vena cava and abdominal aorta are within normal limits. No aneurysm or other vascular abnormality is seen. Free Fluid: No free fluid is detected in the abdomen. IMPRESSION: 1. No acute intraabdominal pathology. /[place]
== END | disposition home or self-care (01) ==
LOC: RAH 12:18
PROVIDERS: ATTEND Internal Medicine
DX: R10.13 Epigastric pain (principal)
CPT/HCPCS: 76700